=== PATIENT | male | born 1995 | race American Indian/Alaskan Native ===

== ENCOUNTER 2020-01-10 20:27 | Emergency (ER) | payer SELFPAY | END 2020-01-10 21:31 | disposition left against medical advice (07) | LOC: ED 20:27 | DX: R21 Rash and other nonspecific skin eruption (principal); Z53.21 Procedure and treatment not carried out due to patient leaving prior to being seen by health care provider ==

== ENCOUNTER 2020-01-12 21:48 | Emergency (ER) | payer SELFPAY ==
[2020-01-13 00:43] LABS: Basophils # (Auto) 0.1 K/mm3 (0.0-0.1); Basophils % (Auto) 0.8 % (0.0-1.8); Eosinophils # (Auto) 0.2 K/mm3 (0.0-0.4); Eosinophils % (Auto) 2.3 % (0.0-4.3); Hemoglobin 14.5 gm/dl (11.8-15.2); Lymphocytes # (Auto) 1.8 K/mm3 (1.2-5.4); Lymphocytes % (Auto) 24.9 % (13.4-35.0); Mean Corpuscular HGB Conc 34 % (32-34); Mean Corpuscular Volume 94 fl (84-94); Monocytes # (Auto) 0.8 K/mm3 (0.0-0.8); Monocytes % (Auto) 10.4 % (0.0-7.3); Platelet Count 327 K/mm3 (140-440); Red Cell Distribution Width 14.7 % (13.2-15.2)
[2020-01-13 00:47] LABS: BUN/Creatinine Ratio 31; Blood Urea Nitrogen 25 mg/dL (9-20); Calcium 9.7 mg/dL (8.4-10.2); Hemolysis Index 14
--- NOTE | 2020-01-13 06:31 | Emergency Department Report ---
ED Psych HPI - General Chief Complaint: Psych Stated Complaint: RASH ON PRIVATE AREA/MH EVAL Time Seen by Provider: 01/13/20 06:28 Source: patient Mode of arrival: Ambulatory - History of Present Illness Initial Comments: 24-year old who is resting comfortably on my encounter. The triage note states that he is here for "hearing voices and hallucinating". Patient is completely lucid on my evaluation he is resting comfortably. He tells me that he did some drugs last night and he wanted to check out his heart. He states that he had some transient burning but no persistent chest pain. He has no complaints at the time of my encounter. Does not complain of any changes in his genital area or something to that effect as listed in triage. Patient denies suicidal or homicidal ideation. He is not hallucinating. He does not appear to be decompensated. He states that he lives with roommates. He denies being on mental health medications. He states that he takes post ex posure prophylaxis for HIV every day but he is not HIV positive. He denies any ongoing medical problems or other daily medication. Patient denies previous prescription for psychiatric medication although his chart states he has a history of depression. Complaint: other -: Last night Associated Psychiatric Symptoms: none History of same: No Quality: other (Now resolved) Improves With: none Worsens With: drug use Context: recent drug abuse Associated Symptoms: denies other symptoms Treatments Prior to Arrival: none If Self Harm: other (Reported hallucinosis as above) - Related Data Allergies Allergy/AdvReac Type Severity Reaction Status Date / Time Penicillins Allergy Anaphylaxis Verified 01/12/20 23:35 ED Review of Systems ROS: Stated complaint: RASH ON PRIVATE AREA/MH EVAL Other details as noted in HPI Constitutional: denies: chills, fever Eyes: denies: eye pain, eye discharge, vision change ENT: denies: ear pain, throat pain Respiratory: denies: cough, shortness of breath, wheezing Cardiovascular: denies: chest pain, palpitations Endocrine: no symptoms reported Gastrointestinal: denies: abdominal pain, nausea, diarrhea Genitourinary: denies: urgency, dysuria Musculoskeletal: denies: back pain, arthralgia Skin: as per HPI Neurological: denies: headache, weakness, paresthesias Psychiatric: auditory hallucinations. denies: anxiety, depression Hematological/Lymphatic: denies: easy bleeding, easy bruising ED Past Medical Hx - Past Medical History Hx Psychiatric Treatment: Yes (Depression) - Surgical History Past Surgical History?: No - Social History Smoking Status: Never Smoker Substance Use Type: None ED Physical Exam - General Limitations: No Limitations General appearance: alert, in no apparent distress - Head Head exam: Present: atraumatic, normocephalic - Eye Eye exam: Present: normal appearance. Absent: scleral icterus - ENT ENT exam: Present: mucous membranes moist - Neck Neck exam: Present: normal inspection. Absent: tenderness, meningismus - Respiratory Respiratory exam: Present: normal lung sounds bilaterally. Absent: respiratory distress - Cardiovascular Cardiovascular Exam: Present: regular rate, normal rhythm. Absent: systolic murmur, diastolic murmur, rubs, gallop - GI/Abdominal GI/Abdominal exam: Present: soft, normal bowel sounds. Absent: distended, tenderness, guarding, rebound - Rectal Rectal exam: Present: deferred - Extremities Exam Extremities exam: Present: normal inspection - Back Exam Back exam: Present: normal inspection - Neurological Exam Neurological exam: Present: alert, oriented X3, CN II-XII intact. Absent: motor sensory deficit - Psychiatric Psychiatric exam: Present: normal affect, normal mood - Skin Skin exam: Present: warm, dry, intact, normal color. Absent: rash ED Course Vital Signs 01/12/20 01/13/20 01/13/20 23:33 05:30 08:08 Temperature 97.8 F 97.6 F 97.6 F Pulse Rate 75 66 100 H Respiratory 18 18 19 Rate Blood Pressure 123/84 Blood Pressure 128/81 131/93 [Left] O2 Sat by Pulse 98 100 100 Oximetry 01/13/20 08:13 Temperature Pulse Rate 58 L Respiratory Rate Blood Pressure Blood Pressure [Left] O2 Sat by Pulse Oximetry - Reevaluation(s) Reevaluation #1: It is possible that the patient had hallucinosis secondary to substance abuse yesterday. He meets no criteria for involuntary confinement. He is referred to [facility]. 01/13/20 08:40 ED Medical Decision Making - Lab Data Result diagrams: 01/12/20 23:59 01/12/20 23:59 Laboratory Results - last 24 hr 01/12/20 01/12/20 01/12/20 23:59 23:59 23:59 WBC RBC Hgb Hct MCV MCH MCHC RDW Plt Count Lymph % (Auto) [place] % (Auto) Eos % (Auto) Baso % (Auto) Lymph # (Auto) [place] # (Auto) Eos # (Auto) Baso # (Auto) Seg Neutrophils % Seg Neutrophils # Sodium 138 Potassium 4.1 Chloride 98.4 Carbon Dioxide 27 Anion Gap 17 BUN 25 H Creatinine 0.8 Estimated GFR > 60 BUN/Creatinine Ratio 31 Glucose 74 L Calcium 9.7 Salicylates < 0.3 L Acetaminophen 5.0 L Plasma/Serum Alcohol 01/12/20 01/12/20 23:59 23:59 WBC 7.3 RBC 4.50 Hgb 14.5 Hct 42.0 MCV 94 MCH 32 MCHC 34 RDW 14.7 Plt Count 327 Lymph % (Auto) 24.9 [place] % (Auto) 10.4 H Eos % (Auto) 2.3 Baso % (Auto) 0.8 Lymph # (Auto) 1.8 [place] # (Auto) 0.8 Eos # (Auto) 0.2 Baso # (Auto) 0.1 Seg Neutrophils % 61.6 Seg Neutrophils # 4.5 Sodium Potassium Chloride Carbon Dioxide Anion Gap BUN Creatinine Estimated GFR BUN/Creatinine Ratio Glucose Calcium Salicylates Acetaminophen Plasma/Serum Alcohol < 0.01 - EKG Data -: EKG Interpreted by Me EKG shows normal: sinus rhythm, axis, intervals, QRS complexes, ST-T waves Rate: bradycardia - EKG Data Interpretation: no acute changes Critical care attestation.: If time is entered above; I have spent that time in minutes in the direct care of this critically ill patient, excluding procedure time. ED Disposition Clinical Impression: Polysubstance abuse Disposition: DC-01 TO HOME OR SELFCARE Is pt being admited?: No Does the pt Need Aspirin: No Condition: Stable Instructions: Polysubstance Abuse (ED) Additional Instructions: Follow-up with primary care. Return to the emergency department any acute change or problem. Referrals: PRIMARY CARE, [Primary Care Provider] - 3-5 Days [facility] [Outside] - 3-5 Days [facility] [Provider Group] - 3-5 Days [facility] [Outside] - 24 Hours Time of Disposition: 08:42
[2020-01-13 08:27] LABS: Bilirubin,Urine NEG (Negative); Blood,Urine NEG (Negative); Color,Urine Colorless (Yellow); Protein,Urine <15 mg/dL mg/dL (Negative); RBC,Urine < 1.0 /HPF (0.0-6.0); Urobilinogen,Urine < 2.0 mg/dL (<2.0); WBC,Urine < 1.0 /HPF (0.0-6.0)
[2020-01-13 08:34] LABS: Benzodiazepines Screen,Urine Negative; Cannabinoid Screen,Urine Negative; Cocaine Screen,Urine Negative; Methadone Screen,Urine Negative; Opiate Screen,Urine Negative
[2020-01-13 08:51] LABS: Amphetamine Screen,Urine PRESUMPTIVE POSITIVE
[2020-01-13 09:17] VITALS: BP 123/86
== END 2020-01-13 09:11 | disposition home or self-care (01) ==
LOC: ED 21:48
DX: F15.10 Other stimulant abuse, uncomplicated (principal); F32.89 Other specified depressive episodes; Z88.0 Allergy status to penicillin
CPT/HCPCS: 36415; 80048; 80307; 80320; 81001; 85025; 93005; G0480

== ENCOUNTER 2020-02-06 04:53 | Emergency (ER) | payer SELFPAY ==
[2020-02-06 05:06] VITALS: BP 112/65
[2020-02-06 05:57] LABS: Basophils # (Auto) 0.1 K/mm3 (0.0-0.1); Basophils % (Auto) 1.1 % (0.0-1.8); Eosinophils # (Auto) 0.2 K/mm3 (0.0-0.4); Eosinophils % (Auto) 1.8 % (0.0-4.3); Hematocrit 39.9 % (35.5-45.6); Hemoglobin 13.7 gm/dl (11.8-15.2); Lymphocytes # (Auto) 2.1 K/mm3 (1.2-5.4); Lymphocytes % (Auto) 23.7 % (13.4-35.0); Mean Corpuscular HGB Conc 34 % (32-34); Mean Corpuscular Volume 93 fl (84-94); Monocytes # (Auto) 0.9 K/mm3 (0.0-0.8); Monocytes % (Auto) 10.3 % (0.0-7.3); Platelet Count 345 K/mm3 (140-440); Red Blood Count 4.29 M/mm3 (3.65-5.03)
[2020-02-06 06:16] LABS: BUN/Creatinine Ratio 21; Blood Urea Nitrogen 19 mg/dL (9-20); Calcium 9.6 mg/dL (8.4-10.2); Hemolysis Index 3
[2020-02-06 06:57] LABS: Bilirubin,Urine NEG (Negative); Blood,Urine MOD (Negative); Color,Urine Yellow (Yellow); Mucus,Urine FEW /HPF; Urobilinogen,Urine < 2.0 mg/dL (<2.0)
[2020-02-06 06:59] LABS: Benzodiazepines Screen,Urine Negative; Cannabinoid Screen,Urine Negative; Cocaine Screen,Urine Negative; Methadone Screen,Urine Negative; Opiate Screen,Urine Negative
[2020-02-06 07:14] LABS: Amphetamine Screen,Urine Positive
== END 2020-02-06 10:00 | disposition left against medical advice (07) ==
LOC: ED 04:53
DX: R41.82 Altered mental status, unspecified (principal); Z53.21 Procedure and treatment not carried out due to patient leaving prior to being seen by health care provider
CPT/HCPCS: 36415; 80048; 80307; 80320; 81001; 85025; 87086; G0480